=== PATIENT | male | born 1990 | race Caucasian/White ===

== ENCOUNTER 2022-09-05 16:53 | Emergency (ER) | payer OTHER, SELFPAY ==
[2022-09-05] VITALS (69 sets, daily range): BP systolic 122–187; BP diastolic 62–133; PULSE 68–112; RESP 11–26; TEMP 36.8; O2SAT 95–100; BMI 39.6
--- NOTE | 2022-09-05 | CRLHL7_ITS ---
For Patients: As a result of the Century Cures Act, medical imaging exams and procedure reports are released immediately into your electronic medical record. You may view this report before your referring provider. If you have questions, please contact your health care provider. HISTORY: Post reduction. TECHNIQUE: Fluoroscopy was provided during fracture reduction. Two spot films acquired. COMPARISON: 09/05/2022. FINDINGS: Mild residual displacement of the distal right radial fracture, decreased as compared to the prior radiographs. Lytic and sclerotic bone lesion involving the distal radius is unchanged. IMPRESSION: Reduction in degree of distal right radial fracture displacement. Dictated by Paxton Valverde MD @ 09/05/2022 9:09:02 PM (Electronically Signed)
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
--- NOTE | 2022-09-05 17:52 | CRLHL7_ITS ---
For Patients: As a result of the Cures Act, medical imaging exams and procedure reports are released immediately into your electronic medical record. You may view this report before your referring provider. If you have questions, please contact your health care provider. HISTORY: Fracture. TECHNIQUE: Three views of the right wrist. COMPARISON: Radiographs 08/17/2022. FINDINGS: There is an acute displaced pathologic fracture of the distal right radial metaphysis involving the more proximal aspect of the metaphysis. This is associated with a mixed lucent and sclerotic bone lesion. Considerations may include both benign process such as fibrous dysplasia or malignant processes such as chondrosarcoma or osteosarcoma. There is a nondisplaced subtle fracture of the ulnar styloid. Soft tissue swelling is present. Relative widening of the DRUJ. IMPRESSION: 1. Acute displaced pathologic fracture of the distal right radius. 2. There is a mixed sclerotic and lucent bone lesion involving the distal radius which could be benign or malignant. Considerations may include fibrous dysplasia, chondrosarcoma, osteosarcoma or other lesion. 3. Subtle nondisplaced fracture of the ulnar styloid. 4. Relative widening of the DRUJ. Dictated by Paxton Valverde MD @ 09/05/2022 6:59:01 PM Dictated by: Paxton Valverde MD @ 09/05/2022 18:59:19 (Electronically Signed)
[2022-09-05] MEDS: ONDANSETRON 2 MG/ML inj 4 MG IVP (18:01)
[2022-09-05] MEDS: MORPHINE 4 MG/ML INJ IVP (18:01)
--- NOTE | 2022-09-05 18:19 | CRLHL7_ITS ---
For Patients: As a result of the Century Cures Act, medical imaging exams and procedure reports are released immediately into your electronic medical record. You may view this report before your referring provider. If you have questions, please contact your health care provider. Indication: Comparison to abnormal contralateral right wrist with a bone lesion in the distal right radius Technique: A total of three views of the left wrist were acquired. Comparison: None Findings: Bones: Alignment is normal. No fractures or bone lesions. Joint spaces: Unremarkable. Soft tissues: Unremarkable. Impression: Normal exam Dictated by Claude Morillo MD @ 09/05/2022 7:00:53 PM (Electronically Signed)
[2022-09-05] MEDS: 0.9 % SODIUM CHLORIDE 1000 ml 1,000 ML 500 ML IV (20:05)
[2022-09-05] MEDS: PROPOFOL 10 MG/ML INJ 200 MG IVP ×2 (20:10→20:40)
--- NOTE | 2022-09-05 21:03 | ED.NURSE ---
Pt requests copy of images on CD. Given to pt.
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
== END 2022-09-05 21:45 | disposition home or self-care (01) ==
PROVIDERS: Emergency Provider Family Medicine
DX: S52.614A Nondisplaced fracture of right ulna styloid process, initial encounter for closed fracture (principal); V43.52XA Car driver injured in collision with other type car in traffic accident, initial encounter; S52.501A Unspecified fracture of the lower end of right radius, initial encounter for closed fracture
CPT/HCPCS: 29125; 73090; 73100; 73110; 76000; 76604; 76705; 93308; 94761; 96374; 96375; 99152; 99284; 99285; 99291; G0390; J2270; J2405; J2704; J7030